=== PATIENT | male | born 1980 | race Caucasian/White ===

== ENCOUNTER 2016-07-10 12:19 | Emergency (ER) | payer BC ==
[~2016-07-10] VITALS: Ht 180.3 cm; Wt 54.0 kg
[~2016-07-10 12:19] MED LIST: LEVEMIR SQ; NOVOLOGP2 SQ
[2016-07-10 12:32] VITALS: BP 87/65; PULSE 94; RESP 16; TEMP 97.8; O2SAT 97
[2016-07-10 12:40] VITALS: BP 95/63; PULSE 94; RESP 18; TEMP 98.4; O2SAT 97
[2016-07-10] MEDS ORDERED: LEVEMIR SQ (12:45)
[2016-07-10] MEDS ORDERED: NOVOLOGP2 SQ ×3 (12:45)
--- NOTE | 2016-07-10 12:47 | PD ---
HPI Chief Complaint: Eye Problems/Injury Time Seen by Provider: 12:39 Travel History International Travel<30 days: No Contact w/Intl Traveler<30days: No Traveled to known affect area: No History of Present Illness HPI 35-year-old male presents to the emergency room for evaluation of the lesion to his right eyelid that has been ongoing for the past few weeks. Patient states in the morning sometimes he feels as though the lesion causes blurry vision. He wakes up with some crust in his eyes. He was concerned because it has been ongoing for 2 weeks now. He denies itchiness, redness, pain, foreign body sensation, photophobia, or eye irritation. Patient is unaware of his cholesterol status. History of type 1 diabetes. [facility] Past Medical History Cancer: No Cardiovascular Problems: No Chemotherapy: No Diabetes: Yes (INSULIN ) Endocrine: No Genitourinary: No Immune Disorder: No Musculoskeletal: No Neurologic: No Psychiatric: No Reproductive: No Respiratory: No Radiation Therapy: No Thyroid Disease: No Past Surgical History Other Surgery: No Social History Alcohol Use: Yes (4 DRINKS 4 X A WEEK ) Tobacco Use: Yes (1 PACK EVERY 3 DAYS) Substance Use: No Allergies-Medications (Allergen,Severity, Reaction): Coded Allergies: No Known Allergies (Verified , 07/10/16) Reported Meds & Prescriptions Reported Meds & Active Scripts Active Reported Levemir Inj (Insulin Detemir) 1,000 unit/ 10 ML Vial 10 Units SQ HS Do not mix with any other Insulin. Novolog Inj (Insulin Aspart) 1,000 Unit/10 Ml Vial 10 Units SQ AC DINNER Novolog Inj (Insulin Aspart) 1,000 Unit/10 Ml Vial 12 Units SQ AC LUNCH PRN Novolog Inj (Insulin Aspart) 1,000 Unit/10 Ml Vial 9 Units SQ DAILY Review of Systems Except as stated in HPI: all other systems reviewed are Neg Physical Exam Narrative GENERAL: Well-nourished, well-developed male in no acute distress. Afebrile. Ambulatory. SKIN: Focused skin assessment warm/dry. There is a small 2 mm, yellow lesion on the right upper eyelid. HEAD: Normocephalic. EYES: PERRL, EOMI, no discharge or injection. No scleral icterus. Visual acuity 20/30 in each eye. Positive red light reflex. NECK: Supple, trachea midline. No JVD or lymphadenopathy. CARDIOVASCULAR: Regular rate and rhythm without murmurs, gallops, or rubs. RESPIRATORY: Breath sounds equal bilaterally. No accessory muscle use. No crackles, rales, wheezes, or rhonchi. PSYCHIATRIC: No delusional thought processes. No hallucinations. Data Data Last Documented VS Vital Signs Date Time Temp Pulse Resp B/P Pulse Ox O2 Delivery O2 Flow Rate FiO2 07/10/16 12:40 98.4 94 18 95/63 97 Room Air MDM Medical Decision Making Medical Screen Exam Complete: Yes Emergency Medical Condition: Yes Medical Record Reviewed: Yes Differential Diagnosis Xanthelasma versus chalazion versus stye Narrative Course 35-year-old male presents to the emergency room for a small lesion to his right upper eyelid that is been present for a few weeks. He is afebrile well- appearing in the emergency room. Vital signs stable. Patient is mildly hypotensive but previous records show this is stable for patient. Physical exam reveals a 2-3 mm, yellow lesion to the right upper eyelid. It is nontender. It causes patient no distress other than some crusting in the eyes in the morning. There is no evidence of conjunctivitis. Likely xanthelasma. Patient told to follow up with a primary care physician for lipid panel return to the emergency room for worsening symptoms. He understands and agrees to plan. Diagnosis Primary Impression: Xanthelasma of eyelid Qualified Code: H02.63 - Xanthelasma of right eyelid Referrals: Primary Care Physician Patient Instructions: Jenniffer (ED), General Instructions Additional Instructions: Rest and drink plenty of fluids. Apply warm compresses for 20 minutes at a time, as needed for pain and swelling. Follow-up with a primary care physician for cholesterol treatment. Return to the emergency room for worsening symptoms. Disposition: 01 DISCHARGE HOME Condition: Stable Carolyn Carroll July 10, 2016 12:47
== END 2016-07-10 13:32 | disposition home or self-care (01) ==
LOC: PHEFT 12:19
DX: H02.61 Xanthelasma of right upper eyelid (principal); E11.9 Type 2 diabetes mellitus without complications; Z79.4 Long term (current) use of insulin; Z72.0 Tobacco use
CPT/HCPCS: 99283

== ENCOUNTER 2017-04-29 09:55 | Emergency (ER) | payer BC ==
[~2017-04-29] VITALS: Ht 180.3 cm; Wt 52.0 kg
[2017-04-29 09:56] VITALS: BP 109/58; PULSE 107; RESP 20; TEMP 97.7; O2SAT 99
--- NOTE | 2017-04-29 12:27 | PD ---
HPI Chief Complaint: Diabetic Time Seen by Provider: 12:26 Travel History International Travel<30 days: No Contact w/Intl Traveler<30days: No Traveled to known affect area: No History of Present Illness HPI 36-year-old male came to the emergency room because he has been losing weight. Patient says in past 5 days he lost 5 pounds. No history of vomiting or diarrhea. He has history of diabetes. Today he checked his sugar and it was 300. He was also experiencing some shortness of breath. Patient does have a primary care physician. In triage his blood sugar was 165 2 hours ago. Blood test was ordered from triage. Vital signs are stable. No history of pain anywhere. No history of fever or chills. [facility] Past Medical History Narrative Medical List of his past medical, surgical, social and family history is reviewed from the nursing note. Cancer: No Cardiovascular Problems: No Chemotherapy: No Diabetes: Yes (INSULIN ) Endocrine: No Genitourinary: No Immune Disorder: No Musculoskeletal: No Neurologic: No Psychiatric: No Reproductive: No Respiratory: No Radiation Therapy: No Thyroid Disease: No Past Surgical History Other Surgery: No Social History Alcohol Use: No Tobacco Use: Yes (02/25 ppd) Substance Use: No Allergies-Medications (Allergen,Severity, Reaction): Coded Allergies: No Known Allergies (Verified Adverse Reaction, Unknown, 04/29/17) Comments No known drug allergies. Reported Meds & Prescriptions Reported Meds & Active Scripts Active Reported Levemir Inj (Insulin Detemir) 1,000 unit/ 10 ML Vial 10 Units SQ HS Do not mix with any other Insulin. Novolog Inj (Insulin Aspart) 1,000 Unit/10 Ml Vial 10 Units SQ AC DINNER Novolog Inj (Insulin Aspart) 1,000 Unit/10 Ml Vial 12 Units SQ AC LUNCH PRN Novolog Inj (Insulin Aspart) 1,000 Unit/10 Ml Vial 9 Units SQ DAILY Narrative Medication List of his home medications reviewed from the nursing note. Review of Systems Except as stated in HPI: all other systems reviewed are Neg Respiratory: Positive: Shortness of Breath Physical Exam Narrative GENERAL: Awake, alert, no obvious distress SKIN: Focused skin assessment warm/dry. HEAD: Atraumatic. Normocephalic. EYES: Pupils equal and round. No scleral icterus. No injection or drainage. ENT: No nasal bleeding or discharge. Mucous membranes pink and moist. NECK: Trachea midline. No JVD. CARDIOVASCULAR: Regular rate and rhythm. No murmur appreciated. RESPIRATORY: No accessory muscle use. Clear to auscultation. Breath sounds equal bilaterally. GASTROINTESTINAL: Abdomen soft, non-tender, nondistended. Hepatic and splenic margins not palpable. MUSCULOSKELETAL: No obvious deformities. No clubbing. No cyanosis. No edema. NEUROLOGICAL: Awake and alert. No obvious cranial nerve deficits. Motor grossly within normal limits. Normal speech. PSYCHIATRIC: Appropriate mood and affect; insight and judgment normal. Data Data Last Documented VS Vital Signs Date Time Temp Pulse Resp B/P (MAP) Pulse Ox O2 Delivery O2 Flow Rate FiO2 04/29/17 09:56 97.7 107 20 109/58 (75) 99 Orders Orders Complete Blood Count With Diff (04/29/17 10:58) Blood Glucose (04/29/17 10:58) Comprehensive Metabolic Panel (04/29/17 10:58) Iv Access Insert/Monitor (04/29/17 10:58) Sodium Chlor 0.9% 1000 Ml Inj (Ns 1000 M (04/29/17 12:45) Chest, Pa & Lat (04/29/17 ) Labs Laboratory Tests Test 04/29/17 11:59 White Blood Count 8.4 TH/MM3 Red Blood Count 4.10 MIL/MM3 Hemoglobin 14.1 GM/DL Hematocrit 40.8 % Mean Corpuscular Volume 99.5 FL Mean Corpuscular Hemoglobin 34.3 PG Mean Corpuscular Hemoglobin Concent 34.5 % Red Cell Distribution Width 13.9 % Platelet Count 210 TH/MM3 Mean Platelet Volume 9.6 FL Neutrophils (%) (Auto) 76.7 % Lymphocytes (%) (Auto) 9.6 % Monocytes (%) (Auto) 10.4 % Eosinophils (%) (Auto) 2.1 % Basophils (%) (Auto) 1.2 % Neutrophils # (Auto) 6.5 TH/MM3 Lymphocytes # (Auto) 0.8 TH/MM3 Monocytes # (Auto) 0.9 TH/MM3 Eosinophils # (Auto) 0.2 TH/MM3 Basophils # (Auto) 0.1 TH/MM3 CBC Comment DIFF FINAL Differential Comment Blood Urea Nitrogen 15 MG/DL Creatinine 0.83 MG/DL Random Glucose 67 MG/DL Total Protein 8.1 GM/DL Albumin 4.1 GM/DL Calcium Level 8.9 MG/DL Alkaline Phosphatase 64 U/L Aspartate Amino Transf (AST/SGOT) 19 U/L Alanine Aminotransferase (ALT/SGPT) 23 U/L Total Bilirubin 0.3 MG/DL Sodium Level 138 MEQ/L Potassium Level 4.1 MEQ/L Chloride Level 105 MEQ/L Carbon Dioxide Level 29.0 MEQ/L Anion Gap 4 MEQ/L Estimat Glomerular Filtration Rate 106 ML/MIN MDM Medical Decision Making Medical Screen Exam Complete: Yes Emergency Medical Condition: Yes Medical Record Reviewed: Yes Differential Diagnosis Dehydration, electrolyte abnormality Narrative Course 12:55 PM a repeat bedside glucose was done which shows 93. Blood test results are back and within acceptable limits. At this point I will order a chest x- ray and if that is normal patient will be discharged home to follow-up with his primary care for further workup. 1:25 PM I looked at the chest x-ray myself and did not see any obvious abnormalities. Awaiting for the radiologist to give a report. Patient will be discharged home if the chest x-ray stayed negative. Have asked him to follow- up with his primary care who can do further workup on his weight loss. Procedures EKG Prior to Arrival: No Diagnosis Primary Impression: Weight loss counseling, encounter for Referrals: Primary Care Physician Additional Instructions: Please return to the ER if condition worsens or any other new concerns. Otherwise follow-up with your primary care for further workup regarding the weight loss. Med/Other Pt SpecificInfo: No Change to Meds Disposition: 01 DISCHARGE HOME Condition: Stable Guilherme Jeff MD Apr 29, 2017 12:27
[2017-04-29 12:36] LABS: ALBUMIN 4.1 GM/DL (3.4-5.0); ALT (GPT) 23 U/L (12-78); AST (GOT) 19 U/L (15-37); AUTOMATED NEUTROPHIL # 6.5 TH/MM3 (1.8-7.7); BASOPHIL # 0.1 TH/MM3 (0-0.2); BASOPHIL % 1.2 % (0.0-2.0); BLOOD UREA NITROGEN 15 MG/DL (7-18); CALCIUM 8.9 MG/DL (8.5-10.1); CHLORIDE 105 MEQ/L (98-107); CREATININE 0.83 MG/DL (0.60-1.30); EOSINOPHIL # 0.2 TH/MM3 (0-0.4); EOSINOPHIL % 2.1 % (0.0-4.0); GLOMERULAR FILTRATION RATE 106 ML/MIN (>89); GLUCOSE,RANDOM 67 MG/DL (74-106); HEMATOCRIT 40.8 % (39.0-51.0); HEMOGLOBIN 14.1 GM/DL (13.0-17.0); LYMPH % 9.6 % (9.0-44.0); LYMPHOCYTE # 0.8 TH/MM3 (1.0-4.8); MEAN CELL VOLUME 99.5 FL (80.0-100.0); MEAN CORPUSCULAR HEMOGLOBIN 34.3 PG (27.0-34.0); MEAN CORPUSCULAR HGB CONC 34.5 % (32.0-36.0); MEAN PLATELET VOLUME 9.6 FL (7.0-11.0); MONO % 10.4 % (0.0-8.0); MONOCYTE # 0.9 TH/MM3 (0-0.9); NEUT % 76.7 % (16.0-70.0); PLATELET COUNT 210 TH/MM3 (150-450); RED CELL DISTRIBUTION WIDTH 13.9 % (11.6-17.2); SODIUM (NA) 138 MEQ/L (136-145); WHITE BLOOD COUNT 8.4 TH/MM3 (4.0-11.0)
[2017-04-29 12:38] LABS: ALKALINE PHOSPHATASE 64 U/L (45-117); TOTAL BILIRUBIN ADULT 0.3 MG/DL (0.2-1.0); TOTAL PROTEIN 8.1 GM/DL (6.4-8.2)
[2017-04-29] MEDS ORDERED: SODIUM CHLOR 0.9% 1000 ML INJ 1,000 ML IV ONE (12:45)
--- NOTE | 2017-04-29 13:30 | RADRPT ---
EXAM DATE/TIME: 04/29/2017 13:15 [facility] COMPARISON: CHEST SINGLE AP, September 08, 2015, 10:49. INDICATIONS : Short of breath. MEDICAL HISTORY : Diabetes mellitus type I. SURGICAL HISTORY : None. ENCOUNTER: Initial ACUITY: 1 day PAIN SCORE: 3/10 LOCATION: Bilateral chest FINDINGS: PA and lateral views of the chest demonstrate the lungs to be symmetrically aerated without evidence of mass, infiltrate or effusion. Hyperaeration bilaterally. The cardiomediastinal contours are unrema rkable. Osseous structures are intact. CONCLUSION: No acute disease. No significant change has occurred. Rodriguez Mckee MD on April 29, 2017 at 13:29 Board Certified Radiologist. This report was verified electronically.
== END 2017-04-29 14:08 | disposition home or self-care (01) ==
LOC: NEPD 09:55
DX: Z71.3 Dietary counseling and surveillance (principal); E11.9 Type 2 diabetes mellitus without complications; Z79.4 Long term (current) use of insulin
CPT/HCPCS: 71046; 80053; 85025; 99284